=== PATIENT | male | born 1930 | race Caucasian/White ===

== ENCOUNTER → 2016-11-22 | Day surgery (SDC) | payer MEDICARE ==
[2016-11-22] VITALS (8 sets, daily range): BP systolic 119–142; BP diastolic 64–79
[~2016-11-22] MED LIST: ASPIRIN325 MG PO; ASPIRIN81 M1 PO; CILOSTAZOL100 MG PO; COUMADIN1 M1 PO; Coumadin5 MG PO; FISH OIL1000 MG PO; LISINOPRIL2.5 MG PO; LOPRESSOR50 MG PO; Lopressor25 MG PO; MASON NATURAL1200 MG PO; MINITRAN TD; MULTIVITAMIN1 CTB PO; NORVASC2.5 MG PO; PANTOPRAZOLE SO40 MG PO; PLAVIX75 MG PO; PROTONIX40 MG PO; QUESTRAN LIGHT4 GM PO; SYNTHROID,LEV100 MCG PO; TOPROL XL100 MG PO; VITAMIN B COMPL1 CAP PO; VITAMIN D2000 IU PO; ZESTRIL5 MG PO; ZOCOR20 MG PO; ZOCOR40 MG PO; [UNRECOGNIZED DRUG - OTHER] T
[2016-11-22 09:57] LABS: INTERNATIONAL NORM RATIO 1.1 (2.0-3.5); PROTHROMBIN TIME 11.9 SECONDS (9.0-12.4)
== END | disposition home or self-care (01) ==
LOC: SDC 03:14
PROVIDERS: Internal Medicine
DX: R91.1 Solitary pulmonary nodule (principal); K21.9 Gastro-esophageal reflux disease without esophagitis; E78.00 Pure hypercholesterolemia, unspecified; I48.91 Unspecified atrial fibrillation; I25.10 Atherosclerotic heart disease of native coronary artery without angina pectoris; I25.2 Old myocardial infarction; Z95.1 Presence of aortocoronary bypass graft; Z82.49 Family history of ischemic heart disease and other diseases of the circulatory system; Z87.891 Personal history of nicotine dependence

== ENCOUNTER → 2016-12-04 | Outpatient (CLI) | payer MEDICARE | END | disposition home or self-care (01) | LOC: CT 13:42 | DX: K11.9 Disease of salivary gland, unspecified (principal) ==